=== PATIENT | male | born 1960 | race African-American/Black ===

== ENCOUNTER 2016-10-15 16:31 | Inpatient (IN) | payer OTHER ==
[~2016-10-15] VITALS: Ht 174 cm; Wt 94.7 kg
[~2016-10-15 16:31] MED LIST: ALPH300C PO; APIX5TAB PO; ASPI-515 PO; ATOR10TA PO; CEFD300C2 PO; CHOL-29 PO; DOXY100C2 PO; EMPA10TA PO; ENAL10TA PO; ENOX60SY4 SQ; FENO145T13 PO; GABA100C8 PO; HYDR-882 PO; INSU100I7 SQ-INSULIN; LEVO1CAP3 PO; LIRA0.6P SC; METF100P3 PO; METH4TAB2 PO; METR70GE2 TP; OMEG1CAP2 PO; SUCR1TAB PO; TADA20TA PO; TEST1.25 TP; TESTOSTERONE INJ
[2016-10-15 18:06] LABS: HEMOGLOBIN 13.3 g/dL (13.7-18.0)
[2016-10-15 18:10] LABS: BLOOD UREA NITROGEN 28 mg/dL (7-18)
[2016-10-15 18:13] LABS: ASPARTATE AMINO TRANSFERASE 18 U/L (15-37)
[2016-10-15] MEDS ORDERED: ASPIRIN 81 MG TABLET CHEW PO ONE (21:30)
[2016-10-15] MEDS ORDERED: TEMPLATE NON-FORMULARY MED. (Levomefolate/B6/B12/Algal Oil** (Metanx Capsule**) 1 TAB) PO SCH (22:00)
[2016-10-15] MEDS ORDERED: GABAPENTIN 400 MG CAPSULE PO SCH (22:00)
[2016-10-15] MEDS ORDERED: TEMPLATE NON-FORMULARY MED. (Alpha Lipoic Acid** 600 MG) PO SCH (22:00)
[2016-10-15] MEDS ORDERED: FENOFIBRATE 145 MG TABLET PO SCH (22:00)
[2016-10-15 22:43] VITALS: BP 127/60
[2016-10-15 22:50] VITALS: BP 127/60
[2016-10-15] MEDS ORDERED: PHARMACY MAY ADJ FOR RENAL FX MC PRN (23:00)
[2016-10-15] MEDS ORDERED: TRAZODONE 50MG TABLET PO PRN (23:00)
[2016-10-15] MEDS: DOXYCYCLINE 100MG TABLET PO SCH (23:17)
[2016-10-15] MEDS: OMEGA-3/FISH OIL CAPSULE PO SCH (23:17)
[2016-10-15] MEDS: APIXABAN 5 MG TABLET PO SCH (23:30)
[2016-10-16] MEDS: INSULIN REGULAR 100 UNITS/ML, 3ML VIAL SQ-INSULIN SCH ×3 (00:04→12:45)
[2016-10-16 02:55] VITALS: BP 133/67
[2016-10-16 05:42] LABS: HEMOGLOBIN 13.2 g/dL (13.7-18.0)
[2016-10-16 05:48] LABS: BLOOD UREA NITROGEN 28 mg/dL (7-18)
[2016-10-16 07:02] VITALS: BP 104/52
[2016-10-16] MEDS: OMEGA-3/FISH OIL CAPSULE PO SCH (08:23)
[2016-10-16] MEDS: APIXABAN 5 MG TABLET PO SCH (08:23)
[2016-10-16 08:30] VITALS: BP 123/72
[2016-10-16] MEDS: DOXYCYCLINE 100MG TABLET PO SCH (08:42)
[2016-10-16] MEDS ORDERED: GABAPENTIN 100 MG CAPSULE PO SCH (09:00)
[2016-10-16] MEDS ORDERED: ASPIRIN 81 MG TABLET EC PO SCH (09:00)
[2016-10-16] MEDS ORDERED: ATORVASTATIN 10 MG TABLET PO SCH (09:00)
[2016-10-16] MEDS ORDERED: ENALAPRIL 10 MG TABLET PO SCH (09:00)
[2016-10-16] MEDS ORDERED: TADALAFIL 20 MG HOMEMEDPO SCH (09:00)
[2016-10-16] MEDS ORDERED: SODIUM CHLORIDE FLUSH 10ML SYR IVF SCH (09:00)
[2016-10-16] MEDS ORDERED: CHOLECALCIFEROL 1,000 UNIT TABLET PO SCH (09:00)
[2016-10-16] MEDS ORDERED: GABA100C8 PO ×2 (09:11)
[2016-10-16 12:55] VITALS: BP 100/63
== END 2016-10-16 13:15 | disposition home or self-care (01) | DRG 74 ==
LOC: ED 17:34 → EDIP 20:59 → 4EST 22:32
PROVIDERS: ADMIT Internal Medicine; ATTEND Internal Medicine
DX: E11.42 Type 2 diabetes mellitus with diabetic polyneuropathy (principal); D68.59 Other primary thrombophilia; N17.9 Acute kidney failure, unspecified; E11.21 Type 2 diabetes mellitus with diabetic nephropathy; E11.65 Type 2 diabetes mellitus with hyperglycemia; E78.5 Hyperlipidemia, unspecified; E11.22 Type 2 diabetes mellitus with diabetic chronic kidney disease; I12.9 Hypertensive chronic kidney disease with stage 1 through stage 4 chronic kidney disease, or unspecified chronic kidney disease; N18.3 Chronic kidney disease, stage 3 (moderate); Z86.711 Personal history of pulmonary embolism; Z79.01 Long term (current) use of anticoagulants; Z86.718 Personal history of other venous thrombosis and embolism; Z90.49 Acquired absence of other specified parts of digestive tract; Z82.3 Family history of stroke; Z87.891 Personal history of nicotine dependence; Z79.4 Long term (current) use of insulin
CPT/HCPCS: 36415; 70450; 80048; 80053; 82330; 82550; 82962; 83036; 83735; 84439; 84443; 85025; 85610; 85730; 93005; 99285; J1815

== ENCOUNTER → 2019-08-23 | Outpatient (CLI) | payer OTHER ==
[~2019-08-23] MED LIST changes: -CEFD300C2 PO; +CEFD300C37 PO; -FENO145T13 PO; +FENO145T19 PO; +GABA-826 PO; -GABA100C8 PO; +HYDR-3653 PO; -HYDR-882 PO
== END | disposition home or self-care (01) ==
LOC: CFH 07:35
PROVIDERS: ATTEND Internal Medicine Cardiovascular Disease
DX: I05.1 Rheumatic mitral insufficiency (principal); I99.8 Other disorder of circulatory system
CPT/HCPCS: 78452; 93017; 93306; A9502

== ENCOUNTER 2019-09-17 09:41 | Day surgery (SDC) | payer OTHER ==
[~2019-09-17] VITALS: Ht 174 cm; Wt 93.6 kg
[2019-09-17] MEDS ORDERED: SODIUM CHLORIDE 0.9% 1,000 ML IV SCH (10:31)
[2019-09-17 10:38] VITALS: BP 130/59
[2019-09-17] MEDS ORDERED: PLEASE ENTER HEIGHT AND WEIGHT MC SCH (11:00)
[2019-09-17] MEDS ORDERED: METF500T17 PO (11:05)
[2019-09-17] MEDS ORDERED: SEMA1PEN SQ (11:05)
[2019-09-17] MEDS ORDERED: CANA100T PO (11:05)
[2019-09-17] MEDS ORDERED: Potassium Citrate PO (11:05)
[2019-09-17] MEDS ORDERED: INSU100I32 SQ (11:05)
[2019-09-17] MEDS ORDERED: PIOG30TA23 PO (11:05)
[2019-09-17] MEDS ORDERED: ICOS1CAP PO (11:05)
[2019-09-17] MEDS ORDERED: LIDOCAINE 2%, 20ML ONE (13:07)
[2019-09-17] MEDS ORDERED: BIVALIRUDIN 250 MG ONE (13:07)
[2019-09-17] MEDS ORDERED: MIDAZOLAM 1 MG/ML, 5ML ONE (13:07)
[2019-09-17] MEDS ORDERED: VERAPAMIL 2.5 MG/ML, 2ML ONE (13:07)
[2019-09-17] MEDS ORDERED: FENTANYL PF 100 MCG/2ML ONE (13:07)
[2019-09-17] MEDS ORDERED: HEPARIN 1,000 UNITS/ML, 10ML ONE (13:07)
[2019-09-17] MEDS ORDERED: TICAGRELOR 90 MG TABLET ONE (13:07)
== END 2019-09-17 16:08 | disposition home or self-care (01) ==
LOC: CACL 09:41
PROVIDERS: ATTEND Internal Medicine Cardiovascular Disease
DX: R94.39 Abnormal result of other cardiovascular function study (principal); I20.9 Angina pectoris, unspecified; I10 Essential (primary) hypertension; E11.65 Type 2 diabetes mellitus with hyperglycemia; E78.2 Mixed hyperlipidemia; G47.33 Obstructive sleep apnea (adult) (pediatric); F17.210 Nicotine dependence, cigarettes, uncomplicated; Z79.82 Long term (current) use of aspirin; Z79.01 Long term (current) use of anticoagulants; Z79.4 Long term (current) use of insulin; Z79.899 Other long term (current) drug therapy; Z86.718 Personal history of other venous thrombosis and embolism; Z86.711 Personal history of pulmonary embolism
CPT/HCPCS: 93458; 99156; C1769; C1894; J1644; J2250; J3010; Q9967; J0583

== ENCOUNTER → 2021-03-02 | Outpatient (CLI) | payer OTHER ==
[~2021-03-02] MED LIST changes: -ASPI-515 PO; +ASPI-963 PO; +CANA100T PO; -ENAL10TA PO; +ENAL10TA9 PO; +ICOS1CAP PO; +INSU100I32 SQ; +METF500T17 PO; +PIOG30TA23 PO; +Potassium Citrate PO; +SEMA1PEN SQ
[2021-03-02 09:32] LABS: ALBUMIN 3.8 g/dL (3.4-5.0); ANION GAP 8 mmol/L (5-15); CALCIUM 9.4 mg/dL (8.5-10.1); CHLORIDE 107 mmol/L (98-107); INTERNATIONAL NORMALIZED RATIO 0.95 (0.93-1.1); PROTHROMBIN TIME 10.2 Seconds (9.6-11.5)
[2021-03-02 09:33] LABS: BASOPHILS % (AUTO) 0 % (0-1); EOSINOPHILS % (AUTO) 1 % (1-7); LYMPHOCYTES % (AUTO) 31 % (22-44); MEAN CORPUSCULAR HEMOGLOBIN 30.6 pg (27.5-34.5); MEAN CORPUSCULAR HGB CONC 34.1 g/dL (33.2-36.2); MEAN PLATELET VOLUME 9.7 fL (7.4-10.4); MONOCYTES % (AUTO) 9 % (2-9); NEUTROPHILS % (AUTO) 59 % (42-75); PLATELET COUNT 134 x10^3/uL (130-400); RED BLOOD COUNT 4.89 x10^6/uL (4.38-5.82); RED CELL DISTRIBUTION WIDTH 13.3 % (9.4-14.8)
[2021-03-02 09:35] LABS: ALANINE AMINOTRANSFERASE 41 U/L (12-78); ALKALINE PHOSPHATASE 56 U/L (45-117); BILIRUBIN,TOTAL 0.7 mg/dL (0.2-1.0); CREATININE 1.56 mg/dL (0.7-1.3); TOTAL PROTEIN 7.4 g/dL (6.4-8.2)
== END | disposition home or self-care (01) ==
LOC: STAR 07:56
PROVIDERS: ATTEND Neurological Surgery
DX: Z01.818 Encounter for other preprocedural examination (principal); M48.062 Spinal stenosis, lumbar region with neurogenic claudication; R94.31 Abnormal electrocardiogram [ECG] [EKG]
CPT/HCPCS: 36415; 71046; 80053; 83036; 85025; 85610; 85730; 93005

== ENCOUNTER 2021-03-16 12:45 | Day surgery (SDC) | payer OTHER ==
[~2021-03-16] VITALS: Ht 175.3 cm; Wt 89.9 kg
[~2021-03-16 12:45] MED LIST changes: +BUPIVACAINE/PF 0.5% ONE; -DOXY100C2 PO; +DOXY100C5 PO; +EPINEPHRINE 1 MG/ML, 1ML ONE; +VANCOMYCIN 1,000 MG ONE
[2021-03-16 13:09] VITALS: BP 128/85
[2021-03-16] MEDS ORDERED: CHLORHEXIDINE 15 ML UDC ONE (13:11)
[2021-03-16] MEDS ORDERED: MIDAZOLAM 1 MG/ML, 2ML ONE (13:14)
[2021-03-16] MEDS ORDERED: FENTANYL PF 250 MCG/5ML ONE (13:14)
[2021-03-16] MEDS ORDERED: LACTATED RINGERS 1,000 ML IV SCH (13:30)
[2021-03-16] MEDS ORDERED: CHLORHEXIDINE 15 ML UDC PO ONE (13:30)
[2021-03-16] MEDS ORDERED: KETAMINE 50 MG/ML, 10ML ONE (14:04)
[2021-03-16] MEDS ORDERED: ROCURONIUM 10MG/ML,5ML ONE (14:54)
[2021-03-16] MEDS ORDERED: CEFAZOLIN 1,000 MG ONE (14:54)
[2021-03-16] MEDS ORDERED: DEXAMETHASONE 4 MG/ML, 1ML ONE (14:54)
[2021-03-16] MEDS ORDERED: NEOSTIGMINE 1 MG/ML, 10ML ONE (14:54)
[2021-03-16] MEDS ORDERED: PROPOFOL 10 MG/ML, 20ML ONE (14:54)
[2021-03-16] MEDS ORDERED: ONDANSETRON 2MG/ML, 2ML ONE (14:54)
[2021-03-16] MEDS ORDERED: LIDOCAINE-MPF 2% ,5ML ONE (14:54)
[2021-03-16] MEDS ORDERED: GLYCOPYRROLATE 0.2MG/1ML, 5ML ONE (14:54)
[2021-03-16] MEDS ORDERED: OXYcodone 5 MG/5 ML ORAL.SOL UDC PO PRN (15:00)
[2021-03-16] MEDS ORDERED: LORazepam 2 MG/ML, 1ML IVPush PRN (15:00)
[2021-03-16] MEDS ORDERED: PROMETHAZINE 25 MG/ML, 1ML IVPush PRN (15:00)
[2021-03-16] MEDS ORDERED: FENTANYL PF 100 MCG/2ML IV PRN (15:00)
[2021-03-16] MEDS ORDERED: HYDROmorphone 1 MG/ML, 1ML INJ IVPush PRN (15:00)
[2021-03-16] MEDS ORDERED: MEPERIDINE/PF 25MG/0.5ML IVPush PRN (15:00)
[2021-03-16] MEDS ORDERED: LABETALOL 5MG/ML, 20ML IV PRN (15:00)
[2021-03-16] MEDS ORDERED: METHOCARBAMOL 1,000 MG in DEXTROSE 5% 100 ML IV PRN (15:00)
[2021-03-16] MEDS ORDERED: ACETAMINOPHEN 325 MG TABLET PO PRN (15:00)
[2021-03-16] MEDS ORDERED: OXYcodone 5 MG/5 ML ORAL.SOL UDC ONE (16:38)
== END 2021-03-16 17:50 | disposition home or self-care (01) ==
LOC: OUT 12:45
PROVIDERS: ATTEND Neurological Surgery
DX: M48.061 Spinal stenosis, lumbar region without neurogenic claudication (principal); M54.16 Radiculopathy, lumbar region; I10 Essential (primary) hypertension; E78.5 Hyperlipidemia, unspecified; E11.65 Type 2 diabetes mellitus with hyperglycemia; F17.210 Nicotine dependence, cigarettes, uncomplicated; Z79.01 Long term (current) use of anticoagulants; Z79.84 Long term (current) use of oral hypoglycemic drugs; Z79.891 Long term (current) use of opiate analgesic; Z79.899 Other long term (current) drug therapy; Z86.718 Personal history of other venous thrombosis and embolism; Z99.81 Dependence on supplemental oxygen
CPT/HCPCS: 63047; 72100; 82962; J0171; J0690; J1100; J2250; J2405; J2704; J2710; J3010; J3370; J7120